=== PATIENT | male | born 1945 | race Caucasian/White ===

== ENCOUNTER 2018-06-19 08:29 | Outpatient (CLI) | payer BC, MEDICARE ==
[2018-06-19 10:28] LABS: Bilirubin Negative (Negative); Blood, Urine Negative (Negative); Clarity CLEAR (Clear); Glucose, Urine (Dipstick) Negative (Negative); Leukocyte Negative (Negative); Nitrite Negative (Negative); Protein, Urine (Dipstick) Negative (Neg-Trace); Specific Gravity, Urine 1.017 (1.002-1.036); Urobilinogen 0.2 mg/dL (0.2-1.0)
[2018-06-19 10:34] LABS: Bacteria/HPF None Seen HPF (None Seen); Hyaline Casts/LPF 0-3 HYALINE CAST LPF (0-3 Hyaline); RBC/HPF 0-3 HPF (0-3); Squamous Epithelial None Seen HPF (0-3); WBC/HPF 0-3 HPF (0-3)
== END 2018-06-19 08:30 | disposition home or self-care (01) ==
LOC: LABBT 08:29
PROVIDERS: ATTEND Orthopaedic Surgery
DX: Z01.818 Encounter for other preprocedural examination (principal); M17.12 Unilateral primary osteoarthritis, left knee
CPT/HCPCS: 81001; 87081

== ENCOUNTER 2018-06-19 08:30 | Inpatient (IN) | payer BC, MEDICARE ==
--- NOTE | 2018-06-30 07:19 | HP ---
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 The pain is now interfering with day-to-day activities including walkin g, getting dressed and sleeping. PAST MEDICAL HISTORY: The patient is otherwise in good health. 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 He has a history of high cholesterol. MEDICATIONS: Include Travatan and Combigan for glaucoma and Crestor. ALLERGIES: He has no known allergies. FAMILY HISTORY/SOCIAL HISTORY/REVIEW OF SYSTEMS: Otherwise unremarkable. PHYSICAL EXAMINATION: GENERAL: He is a healthy appearing male. HEENT: Unremarkable. NECK: Supple. CHEST: Clear. HEART: Regular rate and rhythm. ABDOMEN: Soft, nontender. RECTAL/GENITAL: Deferred. EXTREMITIES: Pertinent findings related to both knees. There is varus deformity bilaterally, left s lightly greater than right. There is tenderness and crepitus over the medial joint line bilaterally, left greater than right. Range of motion is 5-115 degrees bilaterally with crepitus. There is no i nstability. Neurovascular exam is intact. There is a left antalgic gait. Pulses are 2+. LABORATORY AND X-RAY FINDINGS: X-rays of both knees reveal bone on bone collapse medially of both kn ees, left slightly greater than right, with progression from previous x-rays. IMPRESSION: Progressive degenerative joint disease, both knees, left symptomatic more than right. PLAN: Left total knee replacement. He may ultimately require a similar procedure on the right knee. The nature of the surgery, length of recovery and potential complications such as infection, loss o f motion, incomplete relief, thromboembolic phenomena, neurovascular injury, possible transfusion and need for revision have been discussed in detail.
[2018-06-30] MEDS ORDERED: Sodium Chloride 0.9% 100 ML ONE (09:10)
[2018-06-30] MEDS ORDERED: CEFAZOLIN/Water 2 GM/20 ML SYRINGE ONE (09:10)
[2018-06-30] MEDS ORDERED: Midazolam HCl 2 mg/2 ml Vial ONE (10:00)
[2018-06-30] MEDS ORDERED: Lidocaine 1% (PF) 30 ML VIAL ONE (10:00)
[2018-06-30] MEDS ORDERED: Fentanyl 100 MCG/2 ML VIAL ONE ×2 (10:00→14:39)
[2018-06-30] MEDS ORDERED: Zolpidem Tartrate 5 MG TAB PO PRN ×2 (10:05→16:12)
[2018-06-30] MEDS ORDERED: Ondansetron HCl/PF 4 MG/2 ML Vial IVP PRN ×3 (10:05→16:12)
[2018-06-30] MEDS ORDERED: traMADol HCl 50 MG TAB PO PRN ×3 (10:05→16:12)
[2018-06-30] MEDS ORDERED: Promethazine HCl 25 MG/ML VIAL IM PRN (10:05)
[2018-06-30] MEDS ORDERED: Ropivacaine HCl/PF 250 ML in Premix Bag 1 BAG NERVE BLCK SCH (10:05)
[2018-06-30] MEDS ORDERED: HYDROcodone/Acetaminophen 10/325 mg Tablet PO PRN ×3 (10:05→16:12)
[2018-06-30] MEDS ORDERED: Fentanyl 100 MCG/2 ML VIAL IV PRN (10:06)
[2018-06-30] MEDS ORDERED: Bupivacaine/Epinephrine 0.25% 30 ML VIAL ONE (12:23)
[2018-06-30] MEDS ORDERED: Tranexamic Acid 1,000 MG in Sodium Chloride 0.9% 100 ML IVPB SCH ×2 (14:30→16:12)
--- NOTE | 2018-06-30 14:54 | RAD ---
LEFT KNEE TWO VIEWS: History: 73-year-old male with history of recent total knee arthroplasty. Total knee post-operative. FINDINGS: Recent total knee arthroplasty changes are noted without evidence for dislocation or periprostatic fr acture. There is some recent post-operative air within the soft tissues. IMPRESSION: Unremarkable recent post total knee arthroplasty. POS: [facility]
--- NOTE | 2018-06-30 15:52 | OP ---
DATE OF PROCEDURE: 06/30/2018 SURGEON: Nickolas Ruth M.D. SHAPER MACHINE HAND: NOEMI Abdi. ANESTHESIA: General plus adductor canal and sciatic nerve blocks. PREOPERATIVE DIAGNOSIS: Degenerative arthritis, left knee. POSTOPERATIVE DIAGNOSIS: Degenerative arthritis, left knee. PROCEDURE PERFORMED: Left total knee replacement with computer-assisted navigation with cemented Str [employer] Triathlon components (#5 femoral component, #5 universal tibial baseplate with 9 mm CS plastic i nsert, and A29 all plastic patellar component). NARRATIVE REPORT: After satisfactory anesthesia was induced in supine position, sequential compressi on device was placed on the non-operative leg throughout the procedure. Left leg was then prepped an d draped in routine sterile fashion. The leg was elevated, exsanguinated with an Esmarch bandage, an d the tourniquet inflated to 300 mmHg. A gently curved medial parapatellar incision was made carried down to the subcutaneous tissues, and bleeding points controlled with Bovie cautery. Medial parapat ellar arthrotomy was performed. Patella dislocated laterally and portions of the fat pad were excise d for exposure. There was marked degenerative arthritis in the knee, especially medially, with large areas of exposed bone. Meniscal remnants and osteophytes were removed. Using the [employer] pinless n avigation system and the appropriate guides, the distal femoral and proximal tibial articular surface s were excised with an oscillating saw to accept the trial components. It was felt that #5 femoral c omponent, #5 universal tibial baseplate with 9 mm CS plastic insert gave appropriate size, fit, stabi lity, and correction of the preoperative deformity. The patellar articular surface was excised to ac cept an all plastic A29 patellar component. The trial components removed. The knee was copiously ir rigated with pulsatile lavage and bony surfaces thoroughly cleaned and dried. The permanent componen ts were then cemented in a single stage using 1 pack of cement premixed with 1 gram of tobramycin pow eloy. Excess cement was removed. There was again good fit and stability of the components. The skin was infiltrated with 30 mL of 0.25% Marcaine with epinephrine. The medial retinaculum and quadricep s mechanism was closed with interrupted #2 Vicryl and a running #2 Quill. Subcutaneous tissues were closed with running 0 Quill suture and the skin was closed with running subcuticular 3-0 Monoderm and SurgiSeal skin adhesive. A sterile bulky compressive dressing was applied and the tourniquet deflat ed after 69 minutes. The foot promptly pinked up. Sequential compression device was applied to the operated leg and he was awakened and taken to recovery room in stable condition. There were no appar ent intraoperative complications. The estimated blood loss was less than 100 mL.
[2018-06-30] MEDS ORDERED: Promethazine HCl 25 MG/ML VIAL SLOW IVP PRN (16:12)
[2018-06-30] MEDS ORDERED: diphenhydrAMINE 25 MG CAP PO PRN (16:12)
[2018-06-30] MEDS ORDERED: Fentanyl 100 MCG/2 ML VIAL SLOW IVP PRN ×2 (16:12)
[2018-06-30] MEDS ORDERED: Ketorolac Tromethamine 30 MG/ML VIAL IVP SCH (17:00)
[2018-06-30] MEDS: Ketorolac Tromethamine 30 MG/ML VIAL IVP SCH ×2 (17:16→18:24)
[2018-06-30] MEDS: Sodium Chloride 0.9% 1,000 ML IV SCH (17:16)
--- NOTE | 2018-06-30 18:30 | PDOC.PN ---
- Subjective Encounter Start Date: 06/30/18 Encounter Start Time: 16:20 Pt seen for management of medical comorbidities including dyslipidemia. Denies chest pain, shortness of breath, fevers or chills. - Objective MAR Reviewed: Yes Vital Signs & Weight: Vital Signs (12 hours) Temp Pulse Resp Pulse Ox 06/30/18 16:00 97.5 F L 71 18 99 Weight Weight 175 lb Additional Labs: Labs reviewed by me Phys Exam - Physical Examination Constitutional: NAD HEENT: moist MMs Neck: supple Respiratory: clear to auscultation bilateral Cardiovascular: RRR Gastrointestinal: soft Neurological: moves all 4 limbs Psychiatric: normal affect Skin: no rash Dx/Plan (1) Dyslipidemia Code(s): E78.5 - HYPERLIPIDEMIA, UNSPECIFIED Status: Chronic Comment: continue statin (2) Arthritis Code(s): M19.90 - UNSPECIFIED OSTEOARTHRITIS, UNSPECIFIED SITE Status: Chronic Comment: s/p L knee surgery - Plan plan discussed w/ family, PT/OT * . add PRN IV hydralazine for blood pressure spikes. Pain management and DVT prophylaxis per orthopedic service. Review of Systems - Review of Systems Respiratory: negative: Cough, Shortness of Breath, SOB with Excertion, Pleuritic Pain, Wheezing Cardiovascular: negative: chest pain, palpitations, orthopnea, paroxysmal nocturnal dyspnea, edema, light headedness - Medications/Allergies Allergies/Adverse Reactions: Allergies Allergy/AdvReac Type Severity Reaction Status Date / Time No Known Allergies Allergy Verified 06/19/18 08:53 Medications: Current Medications Acetaminophen (Tylenol) 650 mg PO Q4H PRN PRN Reason: MANZANARES/ T > 101F; Mild Pain (1-3) Hydrocodone Bitart/Acetaminophen (Alsea 10/325) 1 tab PO Q4H PRN PRN Reason: Pain (1-3) Ascorbic Acid (Vitamin C) 500 mg PO DAILY [facility]N Aspirin (Ecotrin) 81 mg PO BID [facility]N Brimonidine Tartrate (Alphagan 0.2% Ophth Soln) 1 drop EA EYE HS JOAQU[facility]N Cefazolin Sodium (Ancef) 2 gm SLOW IVP Q8HR [facility]N Stop: 07/01/18 06:01 Cholecalciferol (Vitamin D3) 1,000 units PO DAILY JOAQU[facility]N Diphenhydramine HCl (Benadryl) 25 mg PO Q6H PRN PRN Reason: Itching Fentanyl (Sublimaze) 50 mcg IV Q1H PRN PRN Reason: BREAKTHRU PAIN Ferrous Gluconate (Fergon) 324 mg PO BID JOAQU[facility]N Ropivacaine 250 ml/ Device 250 mls @ 10 mls/hr [facility]ERVE BLCK INF [facility] Sodium Chloride (Normal Saline 0.9%) 1,000 mls @ 100 mls/hr IV .Q10H [facility] Last Admin: 06/30/18 17:16 Dose: Not Given Vancomycin HCl 1 gm/ Device 200 mls @ 200 mls/hr IVPB 2100 [facility] Stop: 06/30/18 21:59 Iron/Minerals/Multivitamins (Theragran M) 1 tab PO DAILY [facility] Ketorolac Tromethamine (Toradol) 15 mg IVP Q6HR [facility] Stop: 07/02/18 06:01 Last Admin: 06/30/18 18:24 Dose: 15 mg Latanoprost (Xalatan 0.005% Ophth Soln) 1 drop EA EYE HS [facility] Ondansetron HCl (Zofran) 4 mg IVP Q6H PRN PRN Reason: Nausea/Vomiting Last Admin: 06/30/18 18:24 Dose: 4 mg Promethazine HCl (Phenergan) 12.5 mg IM Q4H PRN PRN Reason: Nausea Promethazine HCl (Phenergan) 12.5 mg SLOW IVP Q4H PRN PRN Reason: Nausea/Vomiting Rosuvastatin Calcium (Crestor) 20 mg PO HS [facility] Senna/Docusate Sodium (Senokot S) 2 tab PO BID [facility] Sodium Chloride (Flush - Normal Saline) 10 ml IVF PRN PRN PRN Reason: Saline Flush Timolol Maleate (Timoptic 0.5% Ophth Soln) 1 drop EA EYE HS [facility] Tramadol HCl (Ultram) 50 mg PO Q6H PRN PRN Reason: Mild Pain (1-3) Tramadol HCl (Ultram) 100 mg PO Q6H PRN PRN Reason: Moderate Pain 4-6 Zolpidem Tartrate (Ambien) 5 mg PO HSPRN PRN PRN Reason: Insomnia
[2018-06-30] MEDS ORDERED: hydrALAZINE 20 MG/ML VIAL SLOW IVP PRN (18:31)
[2018-06-30] MEDS ORDERED: Vancomycin HCl 1 GM in Premix Bag 1 BAG IVPB SCH (21:00)
[2018-06-30] MEDS: Rosuvastatin 20 MG TAB PO SCH (21:23)
[2018-06-30] MEDS: Aspirin 81 mg Enteric Coated Tablet PO SCH (21:24)
[2018-06-30] MEDS: Brimonidine Tartrate 0.2% Ophth Soln 5 ml Bottle EA EYE SCH (21:26)
[2018-06-30] MEDS: Latanoprost 0.005% Ophth Soln 2.5 ml Bottle EA EYE SCH (21:26)
[2018-06-30] MEDS: Timolol 0.5% Ophth Soln 5 ml Bottle EA EYE SCH (21:27)
[2018-06-30] MEDS: CEFAZOLIN/Water 2 GM/20 ML SYRINGE SLOW IVP SCH (21:29)
[2018-07-01] MEDS: Ketorolac Tromethamine 30 MG/ML VIAL IVP SCH ×4 (00:07→18:49)
[2018-07-01] MEDS: Sodium Chloride 0.9% 1,000 ML IV SCH ×3 (01:36→22:00)
[2018-07-01] MEDS: Acetaminophen 325 MG TAB PO PRN ×2 (04:26→15:22)
[2018-07-01 05:42] LABS: Hemoglobin 13.7 g/dL (14.0-18.0); Mean Corpuscular HGB CONC 34.6 g/dL (32.0-36.0); Mean Corpuscular Hemoglobin 32.5 pg (27.0-31.0)
[2018-07-01] MEDS: CEFAZOLIN/Water 2 GM/20 ML SYRINGE SLOW IVP SCH (06:05)
[2018-07-01 06:14] LABS: Mean Corpuscular Volume 93.9 fL (78.0-98.0); Mean Platelet Volume 8.3 fL (7.4-10.4); Platelet Count 164 thou/uL (130-400); RBC Distribution Width 11.4 % (11.5-14.5); Red Blood Cell (RBC) Count 4.21 mill/uL (4.70-6.10); White Blood Cell (WBC) Count 10.8 thou/uL (4.8-10.8)
[2018-07-01] MEDS: HYDROcodone/Acetaminophen 10/325 mg Tablet PO PRN ×2 (07:58→20:35)
[2018-07-01] MEDS: Senokot S 8.6-50 MG TAB PO SCH ×2 (09:47→20:34)
[2018-07-01] MEDS: Ascorbic Acid 500 mg Chewable Tablet PO SCH (09:47)
[2018-07-01] MEDS: Multivitamin W/ Minerals 1 TAB PO SCH (09:47)
[2018-07-01] MEDS: Aspirin 81 mg Enteric Coated Tablet PO SCH ×2 (09:47→20:35)
[2018-07-01] MEDS: Ferrous Gluconate 324 MG TAB PO SCH ×2 (09:47→20:35)
[2018-07-01 13:29] VITALS: BMI 28.2
[2018-07-01] MEDS: Rosuvastatin 20 MG TAB PO SCH (20:34)
[2018-07-01] MEDS: Timolol 0.5% Ophth Soln 5 ml Bottle EA EYE SCH (20:37)
[2018-07-01] MEDS: Brimonidine Tartrate 0.2% Ophth Soln 5 ml Bottle EA EYE SCH (20:37)
[2018-07-01] MEDS: Latanoprost 0.005% Ophth Soln 2.5 ml Bottle EA EYE SCH (20:37)
[2018-07-02] MEDS: HYDROcodone/Acetaminophen 10/325 mg Tablet PO PRN ×3 (05:21→14:08)
[2018-07-02] MEDS: Ketorolac Tromethamine 30 MG/ML VIAL IVP SCH ×2 (05:24)
[2018-07-02] MEDS: Senokot S 8.6-50 MG TAB PO SCH (08:27)
[2018-07-02] MEDS: Multivitamin W/ Minerals 1 TAB PO SCH (08:27)
[2018-07-02] MEDS: Ascorbic Acid 500 mg Chewable Tablet PO SCH (08:27)
[2018-07-02] MEDS: Aspirin 81 mg Enteric Coated Tablet PO SCH (08:27)
[2018-07-02] MEDS: Ferrous Gluconate 324 MG TAB PO SCH (08:27)
[2018-07-02] MEDS: Sodium Chloride 0.9% 1,000 ML IV SCH (08:28)
[2018-07-02 11:39] VITALS: BP 145/78; TEMP 99
== END 2018-07-02 15:45 | disposition home or self-care (01) | DRG 470 ==
LOC: SJJU 06-30 08:19
PROVIDERS: ADMIT Orthopaedic Surgery; ATTEND Orthopaedic Surgery
PROC: 0SRD0J9 Replacement of Left Knee Joint with Synthetic Substitute, Cemented, Open Approach (ICD-10-PCS; principal; 2018-06-30)
DX: M17.12 Unilateral primary osteoarthritis, left knee (principal); E78.5 Hyperlipidemia, unspecified
CPT/HCPCS: 36415; 85027; C1713; C1776; G8978-GP-CM; G8979-GP-CJ; J1885; J2001; J2250; J2405; J2795; J3010; J3370; J7050

== ENCOUNTER 2018-06-25 08:45 | Outpatient (CLI) | payer BC, MEDICARE ==
[2018-06-25 09:53] LABS: #Eosinphils 0.2 thou/uL (0.0-0.7); #Lymphocytes 1.1 thou/uL (1.20-3.40); #Monocytes 0.7 thou/uL (0.11-0.59); #Neutrophils 3.1 thou/uL (1.40-6.50); %Basophils 0.8 % (0.0-1.0); %Eosinophils 3.6 % (0.0-10.0); %Lymphocytes 21.2 % (21.0-51.0); %Monocytes 13.7 % (0.0-10.0); %Neutrophils 60.7 % (42.0-75.0); Hemoglobin 15.9 g/dL (14.0-18.0); Mean Corpuscular HGB CONC 34.9 g/dL (32.0-36.0); Mean Corpuscular Hemoglobin 32.7 pg (27.0-31.0); Mean Corpuscular Volume 93.7 fL (78.0-98.0); Mean Platelet Volume 8.1 fL (7.4-10.4); Platelet Count 179 thou/uL (130-400); RBC Distribution Width 11.3 % (11.5-14.5); Red Blood Cell (RBC) Count 4.87 mill/uL (4.70-6.10); White Blood Cell (WBC) Count 5.1 thou/uL (4.8-10.8)
[2018-06-25 10:00] LABS: PTT 26.4 SEC (22.9-36.1); Prothrombin Time 13.3 SEC (12.0-14.7)
[2018-06-25 10:14] LABS: Anion Gap 12 mmol/L (10-20); BUN (Urea Nitrogen) 23 mg/dL (8.4-25.7); Calc. Creatinine Clearance 0 mL/min (70-130); Calcium 9.1 mg/dL (7.8-10.44); Carbon Dioxide 26 mmol/L (23-31); Chloride 105 mmol/L (98-107); Estimated GFR-MDRD 80; Glucose 96 mg/dL (83-110); Potassium 3.9 mmol/L (3.5-5.1); Sodium 139 mmol/L (136-145)
== END 2018-06-25 08:46 | disposition home or self-care (01) ==
LOC: LABBT 08:45
PROVIDERS: ATTEND Orthopaedic Surgery
DX: Z01.818 Encounter for other preprocedural examination (principal); M17.12 Unilateral primary osteoarthritis, left knee
CPT/HCPCS: 80048; 85025; 85610; 85730; 86850; 86900; 86901

== ENCOUNTER 2022-03-23 09:12 | Outpatient (CLI) | payer BC ==
[~2022-03-23 09:12] MED LIST: Iopamidol-370 76% 500 ML 1 ML ONE
== END 2022-03-23 09:13 | disposition home or self-care (01) ==
LOC: BICCT 09:12
PROVIDERS: ATTEND Family Medicine
DX: R41.82 Altered mental status, unspecified (principal)
CPT/HCPCS: 70470; 82565

== ENCOUNTER 2024-09-02 09:31 | Outpatient (CLI) | payer BC, MEDICARE | END 2024-09-02 09:32 | disposition home or self-care (01) | LOC: BICRAD 09:31 | PROVIDERS: ATTEND Family Medicine | DX: M25.511 Pain in right shoulder (principal); M19.011 Primary osteoarthritis, right shoulder ==